=== PATIENT | female | born 1980 | race Two or more races ===

== ENCOUNTER 2022-05-17 15:59 | Emergency (ER) | payer OTHER ==
[~2022-05-17] VITALS: Ht 165.1 cm; Wt 70.3 kg
[2022-05-17] MEDS ORDERED: ZOLOFT25 MG PO (16:19)
[2022-05-17] MEDS ORDERED: METRONIDAZOLE500 MG PO (22:35)
[2022-05-17] MEDS ORDERED: OMEPRAZOLE MAGN20 M1 PO (22:35)
[2022-05-17] MEDS ORDERED: CIPRO500 MG PO (22:35)
== END 2022-05-17 22:39 | disposition home or self-care (01) ==
LOC: ER 15:59
DX: K52.9 Noninfective gastroenteritis and colitis, unspecified (principal)

== ENCOUNTER 2022-05-20 16:39 | Emergency (ER) | payer OTHER ==
[~2022-05-20] VITALS: Ht 165.1 cm; Wt 70.3 kg
[~2022-05-20 16:39] MED LIST: CIPRO500 MG PO; METRONIDAZOLE500 MG PO; OMEPRAZOLE MAGN20 M1 PO; ZOLOFT25 MG PO
== END 2022-05-20 23:19 | disposition home or self-care (01) ==
LOC: ER 16:39
DX: K29.70 Gastritis, unspecified, without bleeding (principal)

== ENCOUNTER → 2023-06-21 08:03 | Outpatient (CLI) | payer OTHER ==
[2023-06-21 10:26] LABS: PH,URINE 6.5 (5.0-8.0); URINE APPEARANCE Clear; URINE BILIRRUBIN Negative (NEGATIVE); URINE BLOOD Negative; URINE COLOR Yellow; URINE GLUCOSE Negative (NEGATIVE); URINE LEUKOCYTE Negative; URINE NITRATE Negative; URINE PROTEIN Negative (NEGATIVE); URINE UROBILINOGEN 0.2 E.U./dl
[2023-06-21 10:27] LABS: HEMATOCRIT 39.4 % (36.0-45.00); HEMOGLOBIN 13.1 g/dL (12.0-15.00); MEAN CELL VOLUME 83.1 fL (80.00-100.00); MEAN CORPUSCULAR HEMOGLOBIN 27.7 pg (27.00-32.0); MEAN CORPUSCULAR HGB CONC 33.3 g/dl (32.0-36.0); PLATELET COUNT 183 K/uL (150-450); RED BLOOD COUNT 4.74 M/uL (4.00-6.00); RED CELL DISTRIBUTION WIDTH 14.6 % (11.5-14.5)
[2023-06-21 10:30] LABS: URINE BACTERIA 995.3 uL (0.0-1933); URINE EPITHELIAL CELLS 18.6 uL (0.0-38.8); URINE RBC 13.9 uL (0.0-20.8)
[2023-06-21 10:56] LABS: ALBUMIN 3.7 gm/dL (3.4-5.0); BILIRUBIN TOTAL 0.49 mg/dL (0.3-1.2); CALCIUM 8.6 mg/dL (8.5-10.1); CHOL HDL RATIO 2.6 (0-5.0); CREATININE SERUM 0.65 mg/dL (0.55-1.02); GFR 99.96; GLOBULINA 3.3 G/DL (2.4-3.5); POTASSIUM 4.04 mEq/L (3.5-5.1); TSH 0.912 uIU/mL (0.358-3.74)
== END | disposition home or self-care (01) ==
LOC: LAB 08:03
PROVIDERS: ATTEND Obstetrics & Gynecology
DX: I10 Essential (primary) hypertension (principal); E66.3 Overweight; E55.9 Vitamin D deficiency, unspecified; Z72.51 High risk heterosexual behavior; D50.8 Other iron deficiency anemias